=== PATIENT | female | born 1940 | race Caucasian/White ===

== ENCOUNTER 2017-01-14 04:07 | Emergency (ER) | payer SELFPAY ==
[~2017-01-14] VITALS: Ht 152.4 cm; Wt 88.0 kg
[2017-01-14 04:10] VITALS: Ht 152.4 cm; Wt 88.0 kg
[2017-01-14] MEDS ORDERED: SOD CHLORIDE 0.9% 1,000 ML IV STA (04:31)
[2017-01-14] MEDS ORDERED: ONDANSETRON 4 MG INJ IV STA (04:31)
[2017-01-14 04:43] LABS: BASOPHIL # 0.1 10^3/ul (0.0-0.1); BASOPHILS % 0.5 % (0.0-2.0); EOSINOPHILS # 0.4 10^3/ul (0.0-0.5); EOSINOPHILS % 4.1 % (0.0-7.0); HEMATOCRIT 38.2 % (37.0-47.0); HEMOGLOBIN 12.5 g/dl (12.0-16.0); LYMPHOCYTES # 4.1 10^3/ul (0.8-2.9); MEAN CORPUSCULAR HEMOGLOBIN 28.7 pg (29.0-33.0); MEAN CORPUSCULAR HGB CONC 32.7 g/dl (32.0-37.0); MEAN CORPUSCULAR VOLUME 87.6 fl (82.0-101.0); MEAN PLATELET VOLUME 9.9 fl (7.4-10.4); MONOCYTES % 10.4 % (0.0-11.0); NEUTROPHIL # 3.7 10^3/ul (1.6-7.5); NEUTROPHILS % 40.7 % (39.0-77.0); PLATELET COUNT 241 10^3/UL (140-415); RED BLOOD COUNT 4.36 10^6/ul (4.20-5.40); RED CELL DISTRIBUTION WIDTH 15.2 % (11.5-14.5); WHITE BLOOD COUNT 9.2 10^3/ul (4.8-10.8)
[2017-01-14 05:00] LABS: ALANINE AMINOTRANSFERASE 20 IU/L (13-69); ALBUMIN 3.8 g/dl (3.3-4.9); ALBUMIN/GLOBULIN RATIO 0.92; ALKALINE PHOSPHATASE 59 IU/L (42-121); ANION GAP 11 (8-16); ASPARTATE AMINO TRANSFERASE 21 IU/L (15-46); BILIRUBIN,INDIRECT 0.2 mg/dl (0-1.1); BILIRUBIN,TOTAL 0.2 mg/dl (0.2-1.3); BLOOD UREA NITROGEN 17 mg/dl (7-20); CALCIUM 9.6 mg/dl (8.4-10.2); CARBON DIOXIDE 30 mmol/L (21-31); CHLORIDE 103 mmol/L (97-110); GLUCOSE 126 mg/dl (70-220); POTASSIUM 3.9 mmol/L (3.5-5.1); SODIUM 140 mmol/L (135-144); TOTAL PROTEIN 7.9 g/dl (6.1-8.1)
[2017-01-14 05:22] LABS: TROPONIN-I < 0.012 ng/ml (0.00-0.12)
--- NOTE | 2017-01-14 06:07 | ERA ---
ER Documentation Chief Complaint Date/Time DATE: 01/14/17 TIME: 06:02 Chief Complaint bib ra from home for flu like symptoms for 2 weeks, HPI This is a 76-year-old female with a past medical history of diabetes and hypertension who is presenting with intermittent fever, productive cough of clear sputum, wheezing, with muscle aches and fatigue for 1-2 weeks. She decided to come to the emergency department today because when she got up from the toilet, she also had an episode of feeling lightheaded. She does not endorse dizziness. She did not fall or pass out. There is no injury or trauma. She did feel weak at the time and felt that she needed to be evaluated. The patient was given her diabetes and blood pressure medications prior to arrival. She reports that after taking her medicines, she actually felt better. She does not endorse fever today. She has continued to feel little short of breath with wheezing and cough. She does not feel weak currently, but she has continued to feel fatigued which is been unchanged over the last week or so. The patient has had no headache or vision changes. The patient has had no chest pain. The patient denies abdominal pain or changes to bowel movements or urination. The patient has had no focal deficits. The patient has had no weakness or numbness or tingling to the face or extremities. ROS All systems reviewed and are negative except as per history of present illness. Medications Home Meds Active Scripts Azithromycin* (Azithromycin*) 250 Mg Tablet, 250 MG PO DAILY, #4 TAB Prov:GEORGES ALLAN MD 01/14/17 Albuterol Sulfate* (Ventolin HFA*) 18 Gm Hfa.aer.ad, 2 PUFF INHALATION Q4H Y for WHEEZING, #1 INHALER Prov:GEORGES ALLAN MD 01/14/17 Prednisone* (Prednisone*) 20 Mg Tab, 40 MG PO DAILY for 4 Days, TAB 0 Refills Prov:GEORGES ALLAN MD 01/14/17 Allergies Allergies: Coded Allergies: No Known Allergy (Unverified , 01/14/17) PMhx/Soc Medical and Surgical Hx: pt denies Surgical Hx History of Surgery: No Anesthesia Reaction: No Hx Neurological Disorder: No Hx Respiratory Disorders: No Hx Cardiac Disorders: Yes (diabetes, htn ) Hx Psychiatric Problems: No Hx Miscellaneous Medical Probl: No Hx Alcohol Use: No Hx Substance Use: No Hx Tobacco Use: No Smoking Status: Never smoker FmHx Family History: diabetes Physical Exam Vitals Vital Signs Date Time Temp Pulse Resp B/P Pulse Ox O2 Delivery O2 Flow Rate FiO2 01/14/17 07:48 68 20 98 21 01/14/17 06:50 98.2 72 18 114/56 96 Room Air 01/14/17 04:10 97.0 65 18 120/61 99 01/14/17 04:10 97.0 18 158/81 96 Room Air Physical Exam Const: No apparent distress, well-developed, well-nourished Head: Atraumatic Eyes: Normal Conjunctiva. Extraocular movements intact. ENT: Normal External Ears, Nose. Moist mucous membranes. Superior dentures. Neck: Full range of motion. ~ No meningismus. Resp: Bilateral wheezing, but full breath sounds bilaterally. No rales or rhonchi. Cardio: Regular rate and rhythm, no murmurs Abd: Soft, non tender, non distended. Normal bowel sounds Skin: No petechiae or rashes Back: No midline or flank tenderness Ext: No cyanosis, or edema Neur: Awake and alert, oriented 4. Cranial nerves intact. No facial droop. Normal strength and sensation in all extremities. Coordination with finger to nose normal. Psych: Normal Mood and Affect Result Diagram: 01/14/1742501/14/17 042 Results 24 hrs Laboratory Tests Test 01/14/17 04:26 01/14/17 04:40 01/14/17 08:00 White Blood Count 9.210^3/ul Red Blood Count 4.3610^6/ul Hemoglobin 12.5g/dl Hematocrit 38.2% Mean Corpuscular Volume 87.6fl Mean Corpuscular Hemoglobin 28.7pg Mean Corpuscular Hemoglobin Concent 32.7g/dl Red Cell Distribution Width 15.2% Platelet Count 49181^3/UL Mean Platelet Volume 9.9fl Neutrophils % 40.7% Lymphocytes % 44.0% Monocytes % 10.4% Eosinophils % 4.1% Basophils % 0.5% Nucleated Red Blood Cells % 0.0/100WBC Neutrophils # 3.710^3/ul Lymphocytes # 4.110^3/ul Monocytes # 1.010^3/ul Eosinophils # 0.410^3/ul Basophils # 0.110^3/ul Nucleated Red Blood Cells # 0.010^3/ul Sodium Level 140mmol/L Potassium Level 3.9mmol/L Chloride Level 103mmol/L Carbon Dioxide Level 30mmol/L Anion Gap 11 Blood Urea Nitrogen 17mg/dl Creatinine 0.80mg/dl Glucose Level 126mg/dl Calcium Level 9.6mg/dl Total Bilirubin 0.2mg/dl Direct Bilirubin 0.00mg/dl Indirect Bilirubin 0.2mg/dl Aspartate Amino Transf (AST/SGOT) 21IU/L Alanine Aminotransferase (ALT/SGPT) 20IU/L Alkaline Phosphatase 59IU/L Troponin I < 0.012ng/ml Total Protein 7.9g/dl Albumin 3.8g/dl Globulin 4.10g/dl Albumin/Globulin Ratio 0.92 Lipase 106U/L Lactic Acid Level 2.0mmol/L Urine Color YELLOW Urine Clarity CLEAR Urine pH 5.0 Urine Specific [place] 1.012 Urine Ketones NEGATIVEmg/dL Urine Nitrite NEGATIVEmg/dL Urine Bilirubin NEGATIVEmg/dL Urine Urobilinogen NEGATIVEmg/dL Urine Leukocyte Esterase NEGATIVELeu/ul Urine Hemoglobin NEGATIVEmg/dL Urine Glucose NEGATIVEmg/dL Urine Total Protein NEGATIVEmg/dl Current Medications Medications (Trade) Dose Ordered Sig/Briseida Route PRN Reason Start Time Stop Time Status Last Admin Dose Admin Sodium Chloride (NS) 1,000 ml @ 1,000 mls/hr Q1H STAT IV 01/14/17 04:31 01/14/17 05:30 DC 01/14/17 04:40 Ondansetron HCl (Zofran Inj) 4 mg ONCE STAT IV 01/14/17 04:31 01/14/17 04:32 DC 01/14/17 04:40 Albuterol (Proventil 0.083% (Neb)) 5 mg ONCE STAT INH 01/14/17 07:11 01/14/17 07:14 DC 01/14/17 07:48 Prednisone (Prednisone) 60 mg ONCE STAT PO 01/14/17 07:11 01/14/17 07:14 DC 01/14/17 07:29 Azithromycin (Zithromax) 500 mg ONCE STAT PO 01/14/17 07:11 01/14/17 07:14 DC 01/14/17 07:28 Procedures/MDM MDM Patient's presentation warrants further investigation. I am concerned of a possible infectious etiology, such as bronchitis. The patient does not endorse a history of smoking or COPD or emphysema. However, she does have wheezing today. She reports that this is been going on for 1-2 weeks. I will evaluate for pneumonia as well. Given the patient's weakness, a metabolic workup will be performed. A cardiac workup will also be performed. The patient has no focal deficits. She has full strength and sensation in all extremities. She has no signs of cerebral ischemia and I have low suspicion. I do not feel that a CT scan of the head is warranted at this time. The patient has no dizziness and I do not suspect vertigo. It is possible the patient could have been mildly dehydrated or orthostatic this morning. That said, she does not appear clinically dehydrated. She is not clinically orthostatic in the emergency department today. She is able to ambulate without difficulty. LABS The patient's blood work was obtained and reviewed. The patient seemed shows no leukocytosis or left shift. The patient is afebrile, and I do not suspect a systemic infection. The patient is not anemic today. The patient's platelet count is unremarkable. The patient's CMP shows no signs of metabolic or electrolyte abnormality. The patient has normal renal and hepatic function testing. The patient's lactic is within normal limits. Patient's troponin is negative. The patient's urinalysis shows no signs of hematuria or infection. EKG EKG read by me: Rate/Rhythm: Regular rate and rhythm at a rate of 71 Intervals: Normal [place]: Left shifted Impression: No evidence of acute ischemia or arrhythmia IMAGING CXR: Read by me. Mild cardiomegaly. Left-sided costodiaphragmatic angle is obscured, possible left lower lung consolidation, but imaging is limited secondary to cardiac shadow. No signs of pulmonary edema. No right-sided pleural effusion. TREATMENT/DISPOSITION The patient was given IV fluids and Zofran in the emergency department. Her lightheadedness had resolved prior to arrival, but she continued to feel well in the emergency department. The patient's blood work is reassuring. I do not see signs of a systemic infection. I do not see signs of a cardiac etiology. I do not see signs of a neurologic etiology. The patient was wheezy. She did receive treatment of albuterol and steroids in the emergency department in addition to the IV fluids and Zofran. Her wheezing improved. Given the length of her symptoms, in addition to a possible left lower lobe opacity, I will treat with antibiotics today. She was given a dose of azithromycin in the emergency department. She will be sent home with prescriptions for prednisone, and albuterol inhaler and azithromycin. She needs to follow-up with her primary care physician in 2- 3 days for reevaluation. She will be given precautions with which to return to the emergency department. At this time, the patient is stable for discharge. The patient's blood pressure was initially elevated. She had taken her blood pressure medicine prior to arrival. Her blood pressure returned to within normal limits while in the ER. She will need follow-up for her blood pressure with her primary care physician during her reassessment in 2-3 days. Departure Diagnosis: Primary Impression: Bronchitis Additional Impression: Upper respiratory infection Qualified Code: J06.9 - Upper respiratory tract infection, unspecified type Condition: GEORGES Borja MD Jan 14, 2017 06:07
[2017-01-14] MEDS ORDERED: ALBUTEROL 0.083% (NEB) 2.5 MG/3 ML AMP INH STA (07:11)
[2017-01-14] MEDS ORDERED: AZITHROMYCIN 250 MG TAB PO STA (07:11)
[2017-01-14] MEDS ORDERED: predniSONE 20 MG TAB PO STA (07:11)
--- NOTE | 2017-01-14 07:42 | RADRPT ---
PROCEDURE: Chest x-ray CLINICAL INDICATION: Abdominal pain TECHNIQUE: Chest single view COMPARISON: None FINDINGS: There is mild cardiomegaly and atherosclerotic aortic calcification. The pulmonary vessels are monica l in caliber. The lungs are clear. The costophrenic angles are sharp. The visualized bony thorax is unremarkable. IMPRESSION: No acute cardiopulmonary disease. Mild cardiomegaly and atherosclerotic aortic calcification RPTAT: HH .Sriram Cortes MD, MD Date Time Electronically viewed and signed by .Sriram Cortes MD, on 01/14/2017 07:41 .W/
[2017-01-14 08:05] LABS: ADD UMIC NO; UR ASCORBIC ACID NEGATIVE (NEGATIVE); UR BILIRUBIN (Dip) NEGATIVE (NEGATIVE); UR BLOOD (Dip) NEGATIVE (NEGATIVE); UR CLARITY CLEAR (CLEAR); UR COLOR YELLOW (YELLOW); UR GLUCOSE (Dip) NEGATIVE (NEGATIVE); UR KETONES (Dip) NEGATIVE (NEGATIVE); UR LEUKOCYTE ESTERASE (Dip) NEGATIVE Leu/ul (NEGATIVE); UR NITRITE (Dip) NEGATIVE (NEGATIVE); UR SPECIFIC GRAVITY (Dip) 1.012 (1.003-1.030); UR TOTAL PROTEIN (Dip) NEGATIVE (NEGATIVE); UR UROBILINOGEN (Dip) NEGATIVE (NEGATIVE)
[2017-01-14] MEDS ORDERED: PRED20TA PO (08:29)
[2017-01-14] MEDS ORDERED: ALBU18HF INHALATION (08:29)
[2017-01-14] MEDS ORDERED: AZIT250T6 PO (08:29)
[2017-01-14 10:13] VITALS: BP 126/61; PULSE 76; RESP 18; TEMP 98.2
== END 2017-01-14 10:15 | disposition home or self-care (01) ==
LOC: E/R 04:07
DX: J20.9 Acute bronchitis, unspecified (principal); J06.9 Acute upper respiratory infection, unspecified; I10 Essential (primary) hypertension; E11.9 Type 2 diabetes mellitus without complications
CPT/HCPCS: 36415; 71010; 80053; 81003; 83605; 83690; 84484; 85025; 93005; 94664; 96374; 99285; J2405; J7030; J7512